=== PATIENT | female | born 1975 | race American Indian/Alaskan Native ===

== ENCOUNTER 2016-09-02 09:24 | Inpatient (IN) | payer OTHER ==
[2016-09-02 10:24] LABS: Basophils % (Auto) 0.4 % (0.0-1.8); Hematocrit 42.3 % (30.3-42.9); Hemoglobin 14.4 gm/dl (10.1-14.3); Mean Corpuscular HGB Conc 34 % (30-34); Mean Corpuscular Hemoglobin 33 pg (28-32); Mean Corpuscular Volume 96 fl (79-97); Platelet Count 288 K/mm3 (140-440); Red Cell Distribution Width 12.6 % (13.2-15.2); White Blood Count 12.1 K/mm3 (4.5-11.0)
[2016-09-02 10:39] LABS: Bilirubin,Urine NEG (Negative); Blood,Urine SM (Negative); Ketones,Urine TR mg/dL (Negative); Leukocyte Esterase,Urine NEG (Negative); Mucus,Urine FEW /HPF; Nitrite,Urine NEG (Negative); Urobilinogen,Urine < 2.0 mg/dL (<2.0)
[2016-09-02 11:37] LABS: Potassium TNR mmol/L (3.6-5.0)
[2016-09-02 11:38] LABS: Anion Gap TNR mmol/L; BUN/Creatinine Ratio TNR; Blood Urea Nitrogen TNR mg/dL (7-17); Carbon Dioxide TNR mmol/L (22-30); Chloride TNR mmol/L (98-107); Glucose TNR mg/dL (65-100); Sodium TNR mmol/L (137-145)
[2016-09-02] MEDS ORDERED: ZOFRAN ONE ×2 (11:38→15:59)
[2016-09-02] MEDS ORDERED: DILAUDID ONE ×2 (11:38→16:12)
[2016-09-02 11:39] LABS: Alanine Aminotransferase TNR units/L (7-56); Albumin TNR g/dL (3.9-5); Albumin/Globulin Ratio TNR %; Alkaline Phosphatase TNR units/L (35-129); Bilirubin,Total TNR mg/dL (0.1-1.2); Calcium TNR mg/dL (8.4-10.2); Total Protein TNR g/dL (6.3-8.2)
[2016-09-02 11:40] LABS: Lipase TNR units/L (13-60)
[2016-09-02] MEDS ORDERED: DILAUDID IV ONE ×2 (11:40→11:55)
[2016-09-02] MEDS ORDERED: NACL 0.9% 1000 ML 1,000 ML IV ONE ×2 (11:40→14:04)
--- NOTE | 2016-09-02 11:41 | Emergency Department Report ---
ED General Adult HPI - General Chief complaint: Abdominal Pain Stated complaint: ABD PX Time Seen by Provider: 09/02/16 11:37 Source: patient, EMS (ems notes not available at time of chart dictation) Mode of arrival: Stretcher Limitations: No Limitations - History of Present Illness Initial comments: This is a 41-year-old female. She is previously unknown to me. Reports a past medical history of anemia She presents to the ER with inability to urinate, and diffuse abdominal pain. There is mild nausea and vomiting. Patient reports inability to urinate. Patient denies pelvic discharge or vaginal discharge. The patient reports 2 sexual partners. Symptoms have been going on for the past 2 days. They're constant. The pain radiates all over. It decreases with hydromorphone and rest. -: Gradual Location: abdomen Quality: aching Consistency: constant Improves with: medication, rest Worsens with: movement Associated Symptoms: malaise, nausea/vomiting, weakness - Related Data Previous Rx's Medication Instructions Recorded Last Taken Type Ciprofloxacin HCl [Ciprofloxacin 500 mg PO Q12H #10 tab 09/04/16 Unknown Rx TAB] oxyCODONE /ACETAMINOPHEN [Percocet 1 tab PO Q6HR PRN #15 tablet 09/04/16 Unknown Rx 5/325] Allergies Allergy/AdvReac Type Severity Reaction Status Date / Time No Known Allergies Allergy Unverified 09/02/16 09:40 ED Review of Systems ROS: Stated complaint: ABD PX Other details as noted in HPI Constitutional: denies: fever Eyes: denies: vision change ENT: denies: epistaxis Respiratory: denies: cough Cardiovascular: denies: chest pain Gastrointestinal: abdominal pain Genitourinary: as per HPI Musculoskeletal: back pain Skin: denies: lesions Neurological: weakness Psychiatric: anxiety ED Past Medical Hx - Past Medical History Previous Medical History?: Yes Hx Hypertension: Yes Additional medical history: anemia. fibroids. 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" - Surgical History Past Surgical History?: Yes Additional Surgical History: D&C - Social History Smoking Status: Current Every Day Smoker Substance Use Type: Marijuana - Medications Home Medications: Home Medications Medication Instructions Recorded Confirmed Last Taken Type Ciprofloxacin HCl [Ciprofloxacin 500 mg PO Q12H #10 tab 09/04/16 Unknown Rx TAB] oxyCODONE /ACETAMINOPHEN [Percocet 1 tab PO Q6HR PRN #15 tablet 09/04/16 Unknown Rx 5/325] ED Physical Exam - General Limitations: No Limitations General appearance: alert, in no apparent distress - Head Head exam: Present: atraumatic, normocephalic - Eye Eye exam: Present: normal appearance, EOMI. Absent: nystagmus - ENT ENT exam: Present: normal exam, normal orophraynx, mucous membranes moist, normal external ear exam - Neck Neck exam: Present: normal inspection, full ROM. Absent: tenderness, meningismus - Respiratory Respiratory exam: Present: normal lung sounds bilaterally. Absent: respiratory distress, wheezes, rales, rhonchi, stridor, decreased breath sounds - Cardiovascular Cardiovascular Exam: Present: regular rate, normal rhythm, normal heart sounds. Absent: bradycardia, tachycardia, irregular rhythm, systolic murmur, diastolic murmur, rubs, gallop - GI/Abdominal GI/Abdominal exam: Present: soft, tenderness, normal bowel sounds. Absent: distended, guarding, rebound, rigid, pulsatile mass - External exam: Present: normal external exam Speculum exam: Present: normal speculum exam Bi-manual exam: Present: cervical motion tendernes, adnexal tenderness, uterine tenderness, other (escorted by RN Sia Huynh) - Extremities Exam Extremities exam: Present: normal inspection, full ROM, normal capillary refill. Absent: tenderness, pedal edema, joint swelling, calf tenderness - Back Exam Back exam: Present: normal inspection, full ROM, CVA tenderness (R), CVA tenderness (L). Absent: tenderness - Neurological Exam Neurological exam: Present: alert, oriented X3, normal gait, other (Extraocular movements intact. Tongue midline. No facial droop. Facial sensation intact to light touch in the V1, V2, V3 distribution bilaterally. 5 and 5 strength in 4 extremities.. Sensation is intact to light touch in 4 extremities.). Absent : motor sensory deficit - Psychiatric Psychiatric exam: Present: anxious - Skin Skin exam: Present: warm, dry, intact, normal color. Absent: rash ED Course Vital Signs 09/02/16 09/02/16 09/02/16 09:39 09:40 09:41 Temperature 98.1 F Pulse Rate 118 H Respiratory 18 Rate Blood Pressure 143/101 Blood Pressure [Left] O2 Sat by Pulse 100 100 100 Oximetry 09/02/16 09/02/16 09/02/16 09:43 10:11 14:11 Temperature Pulse Rate 113 H 91 H Respiratory 19 18 20 Rate Blood Pressure 143/101 Blood Pressure 160/100 [Left] O2 Sat by Pulse 100 99 99 Oximetry - Reevaluation(s) Reevaluation #1: 09/02/16 13:13 Pyelonephritis, urinary obstruction, acute renal failure, pancreatitis, appendicitis, pelvic inflammatory disease Assessment and plan: 41-year-old female with acute renal insufficiency, diffuse abdominal pain, inability to urinate, CVA tenderness bilaterally, cervical motion tenderness, adnexal tenderness. Has required multiple doses of hydromorphone for pain control. IV fluids ordered, antibiotics ordered. given physical exam findings, patient to be treated empirically for pelvic inflammatory disease as well as pyelonephritis. case d/w Dr Andrews, who accepts patient to his service nephrology consult pending given analgesic requirements, I will dose patient for a single dose of ketamine , 0.3 mg/kg IV X 1 for pain control 09/02/16 13:14 Reevaluation #2: 09/02/16 14:04 case d/w Dr Graves who will follow ED Medical Decision Making - Lab Data Result diagrams: 09/04/16 05:55 09/04/16 05:55 Vital Signs 09/02/16 09/02/16 09/02/16 09:39 09:40 09:41 Temperature 98.1 F Pulse Rate 118 H Respiratory 18 Rate Blood Pressure 143/101 O2 Sat by Pulse 100 100 100 Oximetry 09/02/16 09/02/16 09:43 10:11 Temperature Pulse Rate 113 H Respiratory 19 18 Rate Blood Pressure 143/101 O2 Sat by Pulse 100 99 Oximetry Lab Results 09/02/16 09/02/16 09/02/16 Range/Units 10:11 11:40 Unknown WBC 12.1 H (4.5-11.0) K/mm3 RBC 4.40 (3.65-5.03) M/mm3 Hgb 14.4 H (10.1-14.3) gm/dl Hct 42.3 (30.3-42.9) % MCV 96 (79-97) fl MCH 33 H (28-32) pg MCHC 34 (30-34) % RDW 12.6 L (13.2-15.2) % Plt Count 288 (140-440) K/mm3 Lymph % (Auto) 9.9 L (13.4-35.0) % [place] % (Auto) 4.1 (0.0-7.3) % Eos % (Auto) 0.0 (0.0-4.3) % Baso % (Auto) 0.4 (0.0-1.8) % Lymph # 1.2 (1.2-5.4) K/mm3 [place] # 0.5 (0.0-0.8) K/mm3 Eos # 0.0 (0.0-0.4) K/mm3 Baso # 0.0 (0.0-0.1) K/mm3 Seg Neutrophils % 85.6 H (40.0-70.0) % Seg Neutrophils # 10.3 H (1.8-7.7) K/mm3 Sodium 136 L (137-145) mmol/L Potassium 3.6 (3.6-5.0) mmol/L Chloride 93.3 L (98-107) mmol/L Carbon Dioxide 19 L (22-30) mmol/L Anion Gap 27 mmol/L BUN 39 H (7-17) mg/dL Creatinine 2.9 H (0.7-1.2) mg/dL Estimated GFR 22 ml/min BUN/Creatinine Ratio 13.44 % Glucose 135 H (65-100) mg/dL Calcium 10.3 H (8.4-10.2) mg/dL Total Bilirubin 0.8 (0.1-1.2) mg/dL AST 20 (5-40) units/L ALT 14 (7-56) units/L Alkaline Phosphatase 100 (35-129) units/L Total Protein 10.3 H (6.3-8.2) g/dL Albumin 5.4 H (3.9-5) g/dL Albumin/Globulin Ratio 1.1 % Lipase HCG, Qual (Negative) Urine Color Crist[place] (Yellow) Urine Turbidity Cloudy (Clear) Urine pH 5.0 (5.0-7.0) Ur Specific [place] 1.024 (1.003-1.030) Urine Protein 100 mg/dl (Negative) mg/dL Urine Glucose (UA) 50 (Negative) mg/dL Urine Ketones Tr (Negative) mg/dL Urine Blood Sm (Negative) Urine Nitrite Neg (Negative) Urine Bilirubin Neg (Negative) Urine Urobilinogen < 2.0 (<2.0) mg/dL Ur Leukocyte Esterase Neg (Negative) Urine WBC (Auto) 29.0 H (0.0-6.0) /HPF Urine RBC (Auto) 3.0 (0.0-6.0) /HPF U Epithel Cells (Auto) 6.0 (0-13.0) /HPF Urine WBC Clumps 2+ /HPF Hyaline Casts 16 /LPF Urine Mucus Few /HPF 09/02/16 09/02/16 Range/Units Unknown Unknown WBC (4.5-11.0) K/mm3 RBC (3.65-5.03) M/mm3 Hgb (10.1-14.3) gm/dl Hct (30.3-42.9) % MCV (79-97) fl MCH (28-32) pg MCHC (30-34) % RDW (13.2-15.2) % Plt Count (140-440) K/mm3 Lymph % (Auto) (13.4-35.0) % [place] % (Auto) (0.0-7.3) % Eos % (Auto) (0.0-4.3) % Baso % (Auto) (0.0-1.8) % Lymph # (1.2-5.4) K/mm3 [place] # (0.0-0.8) K/mm3 Eos # (0.0-0.4) K/mm3 Baso # (0.0-0.1) K/mm3 Seg Neutrophils % (40.0-70.0) % Seg Neutrophils # (1.8-7.7) K/mm3 Sodium TNR (137-145) mmol/L Potassium TNR (3.6-5.0) mmol/L Chloride TNR (98-107) mmol/L Carbon Dioxide TNR (22-30) mmol/L Anion Gap TNR mmol/L BUN TNR (7-17) mg/dL Creatinine TNR (0.7-1.2) mg/dL Estimated GFR TNR ml/min BUN/Creatinine Ratio TNR % Glucose TNR (65-100) mg/dL Calcium TNR (8.4-10.2) mg/dL Total Bilirubin TNR (0.1-1.2) mg/dL AST TNR (5-40) units/L ALT TNR (7-56) units/L Alkaline Phosphatase TNR (35-129) units/L Total Protein TNR (6.3-8.2) g/dL Albumin TNR (3.9-5) g/dL Albumin/Globulin Ratio TNR % Lipase TNR HCG, Qual Negative (Negative) Urine Color (Yellow) Urine Turbidity (Clear) Urine pH (5.0-7.0) Ur Specific [place] (1.003-1.030) Urine Protein (Negative) mg/dL Urine Glucose (UA) (Negative) mg/dL Urine Ketones (Negative) mg/dL Urine Blood (Negative) Urine Nitrite (Negative) Urine Bilirubin (Negative) Urine Urobilinogen (<2.0) mg/dL Ur Leukocyte Esterase (Negative) Urine WBC (Auto) (0.0-6.0) /HPF Urine RBC (Auto) (0.0-6.0) /HPF U Epithel Cells (Auto) (0-13.0) /HPF Urine WBC Clumps /HPF Hyaline Casts /LPF Urine Mucus /HPF - Radiology Data Radiology results: report reviewed, image reviewed Noncontrast CT scan of the abdomen and pelvis shows no acute disease. Critical care attestation.: If time is entered above; I have spent that time in minutes in the direct care of this critically ill patient, excluding procedure time. ED Disposition Clinical Impression: Acute renal failure, Pyelonephritis Disposition: OP ADMITTED IP TO THIS HOSP Is pt being admited?: Yes Does the pt Need Aspirin: No Condition: Good
[2016-09-02] MEDS ORDERED: ZOFRAN IV ONE (11:56)
[2016-09-02 12:14] LABS: Albumin 5.4 g/dL (3.9-5); Albumin/Globulin Ratio 1.1 %; BUN/Creatinine Ratio 13.44; Bilirubin,Total 0.8 mg/dL (0.1-1.2); Calcium 10.3 mg/dL (8.4-10.2); Chloride 93.3 mmol/L (98-107); Potassium 3.6 mmol/L (3.6-5.0); Total Protein 10.3 g/dL (6.3-8.2)
[2016-09-02] MEDS ORDERED: ROCEPHIN/NS 1 GM/50 ML 1 GM/50 ML BAG IV ONE (13:08)
[2016-09-02] MEDS ORDERED: VIBRAMYCIN PO ONE (13:08)
[2016-09-02] MEDS ORDERED: KETALAR IV ONE ×2 (13:13→13:19)
--- NOTE | 2016-09-02 13:13 | Cat Scan Report ---
CT ABDOMEN AND PELVIS WITHOUT CONTRAST: 09/02/16 CLINICAL:Abdominal pain. TECHNIQUE: Volumetric acquisition and 1.25 millimeter scan reconstructions from the lung bases through the iliac crest. The study was performed without oral contrast. FINDINGS: Abdomen: Normal liver, bile ducts and gallbladder. Normal stomach, duodenum, pancreas and spleen. There is a paucity of intra-abdominal fat. The adrenal glands and kidneys are normal. The renal collecting systems and ureters are nondilated. No ascites and no pneumoperitoneum. The small bowel and colon are normal. An appendix is not identified. Mild calcification of the abdominal aorta. Pelvis: Normal urinary bladder and uterus.A 2 cm hypodensity lateral to the uterus on the left side is likely an ovarian cyst. Normal rectum and sigmoid colon. No pelvic fluid or mass. IMPRESSION: 1. Normal abdomen. 2. Normal pelvis with a 2 cm dominant follicle of the left ovary.
[2016-09-02] MEDS ORDERED: NACL 0.9% 1000 ML 1,000 ML ONE (14:04)
--- NOTE | 2016-09-02 14:40 | Admit Criteria Form ---
Admission Criteria Documentation: PYELONEPHRITIS, ACUTE Clinical Indications for Admission to Inpatient Care (Place 'X' for any and all applicable criteria): Admission is indicated for ANY ONE of the following 1,2,3,4,5 [ ]I. Outpatient treatment has failed or is not feasible (eg, multidrug- resistant organism).5 [ ]II. beyond 24 weeks' gestation6 [ ]III. Hemodynamic instability [ ]IV. Immunocompromised state (eg, AIDS, diabetes, sickle cell disease) [ ]V. Known renal or urologic abnormalities (eg, indwelling catheter, structural abnormalities, renal calculi, urinary stent, previous urologic surgery) [ ]. Condition that requires drainage procedure, including ANY ONE of the following: [ ]a) Urinary obstruction [ ]b) Pyelitis [ ]c) Pyonephrosis [ ]d) Renal or perinephric abscess [ ]e) Emphysematous pyelonephritis 7 [X ]VII. Inpatient admission required rather than observation care (Also use Pyelonephritis, Acute: Observation Care Criteria as appropriate) because of ANY ONE of the following: [ ]a) High fever or infection requiring inpatient admission as indicated by ANY ONE of [id number] [ ]A. Documented bacteremia [ ]B. Temp>104.9 [id number] (oral) [ ]C. Temp>103.10F (oral) or <96.80F (rectal) that does not respond to all emergency treatment [X ]b) Acute renal failure [ ]c) Other significant finding or clinical condition judged not to be within the scope of observation care [ ]d) IV fluid to replace significant ongoing (eg, for over 24hrs) losses (> 3 L/m2 per day) [ ]e) Other condition,treatment or monitoring requiring inpatient admission The original [employer] [facility] content created by [employer] has been revised. The portions of the content which have been revised are identified through the use of italic text or in bold, and [employer] has neither reviewed nor approved the modified material. All other unmodified content is copyright [employer]. Please see references footnoted in the original [employer] edition 2016 Admission Criteria Met: Yes
[2016-09-02] MEDS: ZOFRAN IV PRN (16:08)
[2016-09-02] MEDS: DILAUDID IV PRN ×2 (16:18→20:27)
[2016-09-02 18:11] LABS: Urine Drugs of Abuse Note Disclamer
--- NOTE | 2016-09-02 18:41 | History and Physical Report ---
History of Present Illness Date of examination: 09/02/16 Date of admission: 09/02/16 13:19 Chief complaint: Chief complaint: Difficulty urinating one-day Diffuse abdominal pain 2 days. History of present illness: History of present illness: 41-year-old female presents to the ER with difficulty passing urine. Denies any pelvic discharge or vaginal discharge. Patient has some flank pain. The symptoms have been going on for the last 2 days. Pain confined to the flank region. Pain is about 6 on a scale of 1-10. No exacerbating or relieving factors. No fever no chills. No recent travel. No increasing shortness of breath or cough or chest pain. Past History Past Medical History: hypertension, other (fibroids.) Past Surgical History: Other (D&C) Social history: lives with family, smoking (former smoker), alcohol abuse ( alcohol occasionally), other (marijuana use occasionally) Family history: hypertension Medications and Allergies Allergies Allergy/AdvReac Type Severity Reaction Status Date / Time No Known Allergies Allergy Unverified 09/02/16 09:40 Home Medications Medication Instructions Recorded Confirmed Last Taken Type No Known Home Medications [No 09/02/16 09/02/16 Unknown History Reported Home Medications] Active Meds: Active Medications Hydromorphone HCl (Dilaudid) 0.5 mg IV Q3H PRN PRN Reason: Pain , Severe (7-10) Last Admin: 09/02/16 16:18 Dose: 0.5 mg Ondansetron HCl (Zofran) 4 mg IV Q4H PRN PRN Reason: Nausea And Vomiting Last Admin: 09/02/16 16:08 Dose: 4 mg Review of Systems All systems: negative (neck no neck stiffness. Cardiovascular no chest pain no palpitations no shortness of breath no syncope. Rest of her system no shortness of breath no wheezing. GI no nausea no vomiting no diarrhea. Genitourinary system no dysuria no flank pain. Flank pain present. No dysuria. But has difficulty urinating. BARKEEPER no syncope no seizures. Skin no rashes. Hematologic and lymphatic system no swelling no bruising. No lymphedema.) Exam - Physical Exam Narrative exam: Well-developed well-nourished female lying in bed in slight distress secondary to pain - Constitutional Vitals: Temp Pulse Resp BP Pulse Ox 98.1 F 76 16 134/90 100 09/02/16 17:54 09/02/16 17:54 09/02/16 17:54 09/02/16 17:54 09/02/16 17:54 General appearance: Present: no acute distress, well-nourished - EENT Eyes: Present: PERRL ENT: hearing intact, clear oral mucosa - Neck Neck: Present: supple, normal ROM - Respiratory Respiratory effort: normal Respiratory: bilateral: CTA - Cardiovascular Heart rate: 80 Rhythm: regular Heart Sounds: Present: S1 & S2. Absent: rub, click - Extremities Extremities: pulses symmetrical, No edema Peripheral Pulses: within normal limits - Abdominal General gastrointestinal: Present: soft, non-tender, tender (abdomentender especially flank regions), non-distended, normal bowel sounds Female genitourinary: Present: normal - Integumentary Integumentary: Present: clear, warm, dry - Musculoskeletal Musculoskeletal: gait normal, strength equal bilaterally - Psychiatric Psychiatric: appropriate mood/affect, intact judgment & insight - Neurologic Neurologic: CNII-XII intact, moves all extremities - Allied Health Allied health notes reviewed: nursing Results - Labs CBC & Chem 7: 09/02/16 Unknown 09/02/16 Unknown Labs: Laboratory Last Values WBC 12.1 K/mm3 (4.5-11.0) H 09/02/16 Unknown RBC 4.40 M/mm3 (3.65-5.03) 09/02/16 Unknown Hgb 14.4 gm/dl (10.1-14.3) H 09/02/16 Unknown Hct 42.3 % (30.3-42.9) 09/02/16 Unknown MCV 96 fl (79-97) 09/02/16 Unknown MCH 33 pg (28-32) H 09/02/16 Unknown MCHC 34 % (30-34) 09/02/16 Unknown RDW 12.6 % (13.2-15.2) L 09/02/16 Unknown Plt Count 288 K/mm3 (140-440) 09/02/16 Unknown Lymph % (Auto) 9.9 % (13.4-35.0) L 09/02/16 Unknown [place] % (Auto) 4.1 % (0.0-7.3) 09/02/16 Unknown Eos % (Auto) 0.0 % (0.0-4.3) 09/02/16 Unknown Baso % (Auto) 0.4 % (0.0-1.8) 09/02/16 Unknown Lymph # 1.2 K/mm3 (1.2-5.4) 09/02/16 Unknown [place] # 0.5 K/mm3 (0.0-0.8) 09/02/16 Unknown Eos # 0.0 K/mm3 (0.0-0.4) 09/02/16 Unknown Baso # 0.0 K/mm3 (0.0-0.1) 09/02/16 Unknown Seg Neutrophils % 85.6 % (40.0-70.0) H 09/02/16 Unknown Seg Neutrophils # 10.3 K/mm3 (1.8-7.7) H 09/02/16 Unknown Sodium TNR 09/02/16 Unknown Potassium TNR 09/02/16 Unknown Chloride TNR 09/02/16 Unknown Carbon Dioxide TNR 09/02/16 Unknown Anion Gap TNR 09/02/16 Unknown BUN TNR 09/02/16 Unknown Creatinine TNR 09/02/16 Unknown Estimated GFR TNR 09/02/16 Unknown BUN/Creatinine Ratio TNR 09/02/16 Unknown Glucose TNR 09/02/16 Unknown Calcium TNR 09/02/16 Unknown Total Bilirubin TNR 09/02/16 Unknown AST TNR 09/02/16 Unknown ALT TNR 09/02/16 Unknown Alkaline Phosphatase TNR 09/02/16 Unknown Total Protein TNR 09/02/16 Unknown Albumin TNR 09/02/16 Unknown Albumin/Globulin Ratio TNR 09/02/16 Unknown Lipase TNR 09/02/16 Unknown HCG, Qual Negative (Negative) 09/02/16 Unknown Urine Color Cristy (Yellow) 09/02/16 10:11 Urine Turbidity Cloudy (Clear) 09/02/16 10:11 Urine pH 5.0 (5.0-7.0) 09/02/16 10:11 Ur Specific [place] 1.024 (1.003-1.030) 09/02/16 10:11 Urine Protein 100 mg/dl mg/dL (Negative) 09/02/16 10:11 Urine Glucose (UA) 50 mg/dL (Negative) 09/02/16 10:11 Urine Ketones Tr mg/dL (Negative) 09/02/16 10:11 Urine Blood Sm (Negative) 09/02/16 10:11 Urine Nitrite Neg (Negative) 09/02/16 10:11 Urine Bilirubin Neg (Negative) 09/02/16 10:11 Urine Urobilinogen < 2.0 mg/dL (<2.0) 09/02/16 10:11 Ur Leukocyte Esterase Neg (Negative) 09/02/16 10:11 Urine WBC (Auto) 29.0 /HPF (0.0-6.0) H 09/02/16 10:11 Urine RBC (Auto) 3.0 /HPF (0.0-6.0) 09/02/16 10:11 U Epithel Cells (Auto) 6.0 /HPF (0-13.0) 09/02/16 10:11 Urine WBC Clumps 2+ /HPF 09/02/16 10:11 Hyaline Casts 16 /LPF 09/02/16 10:11 Urine Mucus Few /HPF 09/02/16 10:11 Urine Opiates Screen Presumptive negative 09/02/16 10:28 Urine Methadone Screen Presumptive negative 09/02/16 10:28 Ur Barbiturates Screen Presumptive negative 09/02/16 10:28 Ur Phencyclidine Scrn Presumptive negative 09/02/16 10:28 Ur Amphetamines Screen Presumptive negative 09/02/16 10:28 U Benzodiazepines Scrn Presumptive negative 09/02/16 10:28 Urine Cocaine Screen Presumptive negative 09/02/16 10:28 Short CBC 09/02/16 Range/Units Unknown WBC 12.1 H (4.5-11.0) K/mm3 Hgb 14.4 H (10.1-14.3) gm/dl Hct 42.3 (30.3-42.9) % Plt Count 288 (140-440) K/mm3 BMP 09/02/16 09/02/16 11:40 Unknown Sodium 136 L TNR Potassium 3.6 TNR Chloride 93.3 L TNR Carbon Dioxide 19 L TNR BUN 39 H TNR Creatinine 2.9 H TNR Glucose 135 H TNR Calcium 10.3 H TNR Liver Function 09/02/16 09/02/16 Range/Units 11:40 Unknown Total Bilirubin 0.8 TNR (0.1-1.2) mg/dL AST 20 TNR (5-40) units/L ALT 14 TNR (7-56) units/L Alkaline Phosphatase 100 TNR (35-129) units/L Albumin 5.4 H TNR (3.9-5) g/dL Urine 09/02/ Range/Units 10:11 Urine Color Cristy (Yellow) Urine pH 5.0 (5.0-7.0) Ur Specific [place] 1.024 (1.003-1.030) Urine Protein 100 mg/dl (Negative) mg/dL Urine Glucose (UA) 50 (Negative) mg/dL - Imaging and Cardiology US - abdomen: report reviewed ( hold) Assessment and Plan Assessment and plan: 1. Acute pyelonephritis: Urine white blood cells 29 and patient has flank pain. Patient to be started on Rocephin 1 g IV piggyback every 24 pending urine cultures. 2. Acute renal failure: BUN/creatinine is 39 and 2.9. IV fluids for now and monitor BUN/creatinine. 3. Hypertension: Patient to be started on antihypertensives. If blood pressure is high 4. DVT prophylaxis Lovenox 40 mg subcutaneous started. Advance Directives: Yes (full code) VTE prophylaxis?: Chemical (Lovenox 40 mg subcutaneous started)
[2016-09-02] MEDS ORDERED: FLUARIX QUAD 2016-2017(36 MOS+) IM ONE (18:52)
[2016-09-02] MEDS: D5/0.45NS 1,000 ML IV SCH (20:30)
[2016-09-02 21:53] LABS: Bilirubin,Urine NEG (Negative); Blood,Urine LG (Negative); Ketones,Urine NEG (Negative); Leukocyte Esterase,Urine SM (Negative); Nitrite,Urine NEG (Negative); RBC,Urine > 182.0 /HPF (0.0-6.0); Urobilinogen,Urine < 2.0 mg/dL (<2.0)
[2016-09-03] MEDS: DILAUDID IV PRN ×6 (00:31→20:51)
[2016-09-03] MEDS: ZOFRAN IV PRN ×4 (06:06→20:51)
[2016-09-03] MEDS: D5/0.45NS 1,000 ML IV SCH (06:48)
--- NOTE | 2016-09-03 07:42 | Ultrasound Report ---
ULTRASOUND RENAL BILATERAL HISTORY: Elevated creatinine. TECHNIQUE: transabdominal ultrasound with color Doppler interrogation. FINDINGS: The right kidney measures 9.9 x 4.3 x 5.1cm. Right renal cortex: 1.2cm. The left kidney measures 10.6 x 5.5 x 5.4cm. Left renal cortex: 1.4cm. Scans of the kidneys show normal renal contours. There is normal central calyceal clustering and good preservation of the cortical thickness. There is no evidence of mass or hydronephrosis. The views of the bladder and the region of the ureters appear normal. IMPRESSION: Unremarkable renal ultrasound.
[2016-09-03 09:16] LABS: Basophils % (Auto) 0.2 % (0.0-1.8); Hematocrit 33.2 % (30.3-42.9); Hemoglobin 11.2 gm/dl (10.1-14.3); Mean Corpuscular HGB Conc 34 % (30-34); Mean Corpuscular Hemoglobin 33 pg (28-32); Mean Corpuscular Volume 97 fl (79-97); Platelet Count 205 K/mm3 (140-440); Red Blood Count 3.42 M/mm3 (3.65-5.03); Red Cell Distribution Width 12.7 % (13.2-15.2); White Blood Count 11.8 K/mm3 (4.5-11.0)
[2016-09-03 09:23] LABS: Anion Gap 17 mmol/L; BUN/Creatinine Ratio 26.25; Blood Urea Nitrogen 21 mg/dL (7-17); Calcium 9.1 mg/dL (8.4-10.2); Carbon Dioxide 22 mmol/L (22-30); Chloride 103.2 mmol/L (98-107); Glucose 103 mg/dL (65-100); Potassium 3.6 mmol/L (3.6-5.0); Sodium 139 mmol/L (137-145)
--- NOTE | 2016-09-03 10:29 | Consultation ---
History of Present Illness - Reason for Consult Consult date: 09/03/16 acute renal failure Requesting physician: TARAN GATICA - History of Present Illness 41-year-old lady with a history of uterine fibroids and ovarian cyst presents on account of a one-week history of difficulty passing urine. Patient also complained of left flank pain which she describes a sharp constant pain, rates it as a 6/10, aggravated by getting up and relieved by sitting in hot tub. Patient was taking Advil at least twice a day because of the pain. She also had low back pain for 3-4 days now. Account of the unrelenting symptoms patient came to the hospital. BUN/creatinine elevated at 39/2.9 mg/dL. Patient had not been able to pass urine. A Klein catheter was inserted and she made a lot of urine. On further inquiry, she admits to nausea or vomiting. She has been constipated. Past History Past Medical History: hypertension, other (fibroids. Ovarian cyst) Past Surgical History: Other (D&C) Social history: lives with family, smoking (6 cigarettes a day), alcohol abuse ( alcohol occasionally), other (marijuana use 2 blunts a day, patient is a [employer] at [employer]. She lives with her boyfriend. She has 6 children who do not live with her. The youngest who is 12 lives with her 18-year-old daughter) Family history: cancer (sister had ovarian cancer.), hypertension, other (does not know the cause of of her father. Mother has COPD. Brother is alive and well.) Medications and Allergies Allergies Allergy/AdvReac Type Severity Reaction Status Date / Time No Known Allergies Allergy Unverified 09/02/16 09:40 Home Medications Medication Instructions Recorded Confirmed Last Taken Type Ciprofloxacin HCl [Ciprofloxacin 500 mg PO Q12H #10 tab 09/04/16 Unknown Rx TAB] oxyCODONE /ACETAMINOPHEN [Percocet 1 tab PO Q6HR PRN #15 tablet 09/04/16 Unknown Rx 5/325] Active Meds: Active Medications Hydromorphone HCl (Dilaudid) 1 mg IV Q3H PRN PRN Reason: Pain , Severe (7-10) Last Admin: 09/03/16 09:19 Dose: 1 mg Dextrose/Sodium Chloride (D5/0.45ns) 1,000 mls @ 100 mls/hr IV DIRECT SVITLANA Last Admin: 09/03/16 06:48 Dose: 100 mls/hr Ceftriaxone Sodium (Rocephin/Ns 2 Gm/100 Ml) 2 gm in 100 mls @ 200 mls/hr IV Q24H SVITLANA PRN Reason: Protocol Influenza Virus Vaccine Quadrival (Fluarix Quad [id number](36 Mos+)) 60 mcg IM .ONCE ONE Stop: 09/03/16 12:01 Ondansetron HCl (Zofran) 4 mg IV Q4H PRN PRN Reason: Nausea And Vomiting Last Admin: 09/03/16 06:06 Dose: 4 mg Review of Systems All systems: negative (Constitutional: She admits to fever and chills. Appetite is diminished. No weight loss. HEENT: She admits to sulfa throat and sinus drainage no hearing or vision impairment . Cardiovascular: No chest pain, shortness of breath, palpitations, lower extremity swelling or dizziness. Respiratory: No cough, sputum, admits to shortness of breath, no hemoptysis or wheezing. Gastrointestinal: No nausea, vomiting, diarrhea, abdominal pain, hematemesis or melena. Admits to constipation Genitourinary: No frequency urgency dysuria or hematuria. hematologic: No abnormal bleeding or bruising. Integumentary: no pruritus but admits to a rash in the right heel Neurological : Admits to headache no focal weakness or numbness, no syncope or seizures. Musculoskeletal: No joint pains no stiffness. Psychiatry: no anxiety or depression) Exam - Vital Signs Vital signs: Vital Signs Pulse Ox 100 09/02/16 09:39 - Physical Exam Narrative exam: Young -[place] female lying in bed in no acute distress HEENT normocephalic atraumatic, pupils equal reactive to light, pink, clear oropharynx Neck supple, no thyromegaly no jugular venous distention CVS S1-S2 regular rate rhythm without murmur, rub or gallop Chest clear to auscultation Abdomen soft, distended, tender no organomegaly no bruit bowel sounds present Extremities no edema no cyanosis or clubbing Neuro awake, alert oriented x3 no gross deficit Results - Lab Results 09/04/16 05:55 09/04/16 05:55 Most recent lab results Calcium 9.1 mg/dL (8.4-10.2) 09/03/16 08:41 Urine Creatinine 207.4 mg/dL (0.1-20.0) H 09/02/16 Unknown Urine Total Protein 87 mg/dL (5-11.8) H 09/02/16 Unknown Assessment and Plan - Patient Problems (1) Proteinuria Status: Acute Plan to address problem: Proteinuria/hematuria need to rule out glomerulonephritis if this is persisting. Repeat urinalysis and quantify proteinuria after treating infection (2) Acute renal failure Status: Acute Qualifiers: Acute renal failure type: A Plan to address problem: Acute kidney injury probably secondary to obstructive uropathy and superimposed NSAID induced nephropathy. Urinary retention etiology uncertain. Urinalysis also suggest an infection (3) Pyelonephritis Status: Acute Plan to address problem: Follow-up urine culture. Continue antibiotics. (4) Urinary retention Status: Acute Plan to address problem: Etiology uncertain. Klein catheter has been removed and voiding trial been attempted. If she does not improve, we'll need to consider urology consult.
[2016-09-03] MEDS ORDERED: FLUARIX QUAD 2016-2017(36 MOS+) IM ONE (12:00)
--- NOTE | 2016-09-03 14:56 | Progress Note ---
Assessment and Plan Assessment and plan: 41-year-old female presents to the ER with difficulty passing urine. Denies any pelvic discharge or vaginal discharge. Patient has some flank pain. The symptoms have been going on for the last 2 days. Pain confined to the flank region. Pain is about 6 on a scale of 1-10. No exacerbating or relieving factors. No fever no chills. No recent travel. No increasing shortness of breath or cough * Abdominal Severe abdominal pain * Gastroenteritis * Chest pain-vision without complaint of chest pain * T waves inverted on EKG * Acute kidney injury- Likely secondary to vasomotor nephropathy * Hypertensive urgency * Acute cystitis * Flank Pain * THC abuse Plan: * Check CT abdomen and pelvis with contrast * Renal function has improved * Renal function improved. 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 Reports abdominal pain generalized no alleviating or aggravating factor X over 10 in intensity. Denies any chest pain, nausea, vomiting, diarrhea No fever noted blood pressure controlled No adverse events reported to me by nursing staff Hospitalist Physical - Physical exam Narrative exam: VITAL SIGNS: Reviewed. GENERAL: The patient appeared well nourished and normally developed. Vital signs as documented. HEAD: No signs of head trauma. EYES: Pupils are equal. Extraocular motions intact. EARS: Hearing grossly intact. MOUTH: Oropharynx is normal. NECK: No adenopathy, no JVD. CHEST: Chest with clear breath sounds bilaterally. No wheezes, rales, or rhonchi. CARDIAC: Regular rate and rhythm. S1 and S2, without murmurs, gallops, or rubs. VASCULAR: No Edema. Peripheral pulses normal and equal in all extremities. ABDOMEN: Soft, tenderness. No sign of distention. No rebound or guarding, and no masses palpated. Bowel Sounds normal. MUSCULOSKELETAL: Good range of motion of all major joints. Extremities without clubbing, cyanosis or edema. NEUROLOGIC EXAM: Alert and oriented x 3. No focal sensory or strength deficits. Speech normal. Follows commands. PSYCHIATRIC: Mood normal. SKIN: No rash or lesions. - Constitutional Vitals: Temp Pulse Resp BP Pulse Ox 98 F 72 18 149/96 97 09/03/16 08:00 09/03/16 13:09 09/03/16 13:09 09/03/16 08:00 09/03/16 08:00 General appearance: Present: no acute distress, well-nourished Results - Labs CBC & Chem 7: 09/03/16 08:41 09/03/16 08:41 Labs: Laboratory Last Values WBC 11.8 K/mm3 (4.5-11.0) H 09/03/16 08:41 RBC 3.42 M/mm3 (3.65-5.03) L 09/03/16 08:41 Hgb 11.2 gm/dl (10.1-14.3) D 09/03/16 08:41 Hct 33.2 % (30.3-42.9) D 09/03/16 08:41 MCV 97 fl (79-97) 09/03/16 08:41 MCH 33 pg (28-32) H 09/03/16 08:41 MCHC 34 % (30-34) 09/03/16 08:41 RDW 12.7 % (13.2-15.2) L 09/03/16 08:41 Plt Count 205 K/mm3 (140-440) 09/03/16 08:41 Lymph % (Auto) 13.6 % (13.4-35.0) 09/03/16 08:41 [place] % (Auto) 6.7 % (0.0-7.3) 09/03/16 08:41 Eos % (Auto) 0.0 % (0.0-4.3) 09/03/16 08:41 Baso % (Auto) 0.2 % (0.0-1.8) 09/03/16 08:41 Lymph # 1.6 K/mm3 (1.2-5.4) 09/03/16 08:41 [place] # 0.8 K/mm3 (0.0-0.8) 09/03/16 08:41 Eos # 0.0 K/mm3 (0.0-0.4) 09/03/16 08:41 Baso # 0.0 K/mm3 (0.0-0.1) 09/03/16 08:41 Seg Neutrophils % 79.5 % (40.0-70.0) H 09/03/16 08:41 Seg Neutrophils # 9.4 K/mm3 (1.8-7.7) H 09/03/16 08:41 Sodium 139 mmol/L (137-145) 09/03/16 08:41 Potassium 3.6 mmol/L (3.6-5.0) 09/03/16 08:41 Chloride 103.2 mmol/L (98-107) 09/03/16 08:41 Carbon Dioxide 22 mmol/L (22-30) 09/03/16 08:41 Anion Gap 17 mmol/L 09/03/16 08:41 BUN 21 mg/dL (7-17) H 09/03/16 08:41 Creatinine 0.8 mg/dL (0.7-1.2) D 09/03/16 08:41 Estimated GFR > 60 ml/min 09/03/16 08:41 BUN/Creatinine Ratio 26.25 % 09/03/16 08:41 Glucose 103 mg/dL (65-100) H 09/03/16 08:41 POC Glucose 122 (70-105) H 09/02/16 09:48 Calcium 9.1 mg/dL (8.4-10.2) 09/03/16 08:41 Total Bilirubin TNR 09/02/16 Unknown AST TNR 09/02/16 Unknown ALT TNR 09/02/16 Unknown Alkaline Phosphatase TNR 09/02/16 Unknown Total Protein TNR 09/02/16 Unknown Albumin TNR 09/02/16 Unknown Albumin/Globulin Ratio TNR 09/02/16 Unknown Lipase TNR 09/02/16 Unknown HCG, Qual Negative (Negative) 09/02/16 Unknown Urine Color Cristy (Yellow) 09/02/16 Unknown Urine Turbidity Cloudy (Clear) 09/02/16 Unknown Urine pH 6.0 (5.0-7.0) 09/02/16 Unknown Ur Specific [place] 1.021 (1.003-1.030) 09/02/16 Unknown Urine Protein 100 mg/dl mg/dL (Negative) 09/02/16 Unknown Urine Glucose (UA) Neg mg/dL (Negative) 09/02/16 Unknown Urine Ketones Neg mg/dL (Negative) 09/02/16 Unknown Urine Blood Lg (Negative) 09/02/16 Unknown Urine Nitrite Neg (Negative) 09/02/16 Unknown Urine Bilirubin Neg (Negative) 09/02/16 Unknown Urine Urobilinogen < 2.0 mg/dL (<2.0) 09/02/16 Unknown Ur Leukocyte Esterase Sm (Negative) 09/02/16 Unknown Urine WBC (Auto) 71.0 /HPF (0.0-6.0) H 09/02/16 Unknown Urine RBC (Auto) > 182.0 /HPF (0.0-6.0) 09/02/16 Unknown U Epithel Cells (Auto) 6.0 /HPF (0-13.0) 09/02/16 10:11 Urine WBC Clumps 2+ /HPF 09/02/16 10:11 Hyaline Casts 16 /LPF 09/02/16 10:11 Urine Mucus Few /HPF 09/02/16 10:11 Urine Creatinine 207.4 mg/dL (0.1-20.0) H 09/02/16 Unknown Protein/Creatinin Ratio 0.42 09/02/16 Unknown Urine Total Protein 87 mg/dL (5-11.8) H 09/02/16 Unknown Urine Opiates Screen Presumptive negative 09/02/16 10:28 Urine Methadone Screen Presumptive negative 09/02/16 10:28 Ur Barbiturates Screen Presumptive negative 09/02/16 10:28 Ur Phencyclidine Scrn Presumptive negative 09/02/16 10:28 Ur Amphetamines Screen Presumptive negative 09/02/16 10:28 U Benzodiazepines Scrn Presumptive negative 09/02/16 10:28 Urine Cocaine Screen Presumptive negative 09/02/16 10:28 U Marijuana (THC) Screen Presumptive positive 09/02/16 10:28 Drugs of Abuse Note Disclamer 09/02/16 10:28
[2016-09-03] MEDS ORDERED: CEPHULAC PO ONE (15:11)
[2016-09-03] MEDS: ROCEPHIN/NS 2 GM/100 ML 2 GM/100 ML BAG IV SCH (16:52)
[2016-09-03] MEDS ORDERED: NACL ONE (18:40)
[2016-09-03 19:00] LABS: Creatine Kinase MB 1.3 ng/mL (0.0-4.0)
[2016-09-03 19:01] LABS: Creatine Kinase 138 units/L (30-135)
--- NOTE | 2016-09-03 20:05 | Cat Scan Report ---
FINAL REPORT PROCEDURE: CT ABDOMEN PELVIS W CON TECHNIQUE: Computerized axial tomography of the abdomen and pelvis was performed after the IV injection of iodinated nonionic contrast. HISTORY: abdominal pain COMPARISON: CT exam dated September 02, 2016 FINDINGS: There is likely a hepatomegaly. Spleen appears normal. No gallbladder abnormality is seen but there is mild intra and extrahepatic biliary ductal dilation. Common bile duct is dilated up to 8.5 millimeters in diameter, increased from prior study. A cause for obstruction is not seen by this exam pancreas appears normal. Adrenal glands and abdominal aorta are normal in size. No renal abnormality is seen. Normal appendix is seen. Mild free pelvic fluid is slightly greater than prior study but is low in density. Follicles are seen in the right ovary. The cyst in the left ovary, seen on prior study, has likely ruptured. Mild air in the urinary bladder is likely from prior catheterization. No bladder wall thickening is seen. There is no evidence of bowel obstruction. No constipation is seen. Disc bulges are seen in the mid to lower lumbar spine. IMPRESSION: There has likely been interval rupture of the cyst in the left ovary with mild low-density free fluid in the pelvis. New mild prominence of the common bile duct and proximal intrahepatic biliary ducts is seen without a cause for obstruction. Correlation with bilirubin levels is recommended. MRCP may be useful in followup.
[2016-09-04] MEDS: DILAUDID IV PRN ×5 (01:01→15:34)
[2016-09-04] MEDS: ZOFRAN IV PRN ×4 (01:01→12:45)
[2016-09-04 02:18] LABS: Creatine Kinase MB 1.1 ng/mL (0.0-4.0)
[2016-09-04 02:21] LABS: Creatine Kinase 129 units/L (30-135)
[2016-09-04 06:15] LABS: Hematocrit 29.7 % (30.3-42.9); Hemoglobin 10.2 gm/dl (10.1-14.3); Mean Corpuscular HGB Conc 34 % (30-34); Mean Corpuscular Hemoglobin 33 pg (28-32); Mean Corpuscular Volume 96 fl (79-97); Platelet Count 160 K/mm3 (140-440); Red Blood Count 3.09 M/mm3 (3.65-5.03); Red Cell Distribution Width 12.5 % (13.2-15.2); White Blood Count 7.5 K/mm3 (4.5-11.0)
[2016-09-04 06:35] LABS: Anion Gap 15 mmol/L; Blood Urea Nitrogen 9 mg/dL (7-17); Calcium 8.3 mg/dL (8.4-10.2); Carbon Dioxide 23 mmol/L (22-30); Chloride 101.4 mmol/L (98-107); Glucose 96 mg/dL (65-100); Potassium 3.2 mmol/L (3.6-5.0); Sodium 136 mmol/L (137-145)
--- NOTE | 2016-09-04 08:28 | Progress Note ---
Assessment and Plan - Patient Problems (1) Proteinuria Status: Acute Plan to address problem: Proteinuria/hematuria need to rule out glomerulonephritis if this is persisting. Repeat urinalysis and quantify proteinuria after treating infection (2) Acute renal failure Status: Acute Qualifiers: Acute renal failure type: A Plan to address problem: Acute kidney injury probably secondary to obstructive uropathy and superimposed NSAID induced nephropathy. Renal function is back to normal. Can be followed up as an outpatient (3) Pyelonephritis Status: Acute Plan to address problem: Follow-up urine culture. Continue antibiotics., Change to by mouth antibiotics Subjective Date of service: 09/04/16 Principal diagnosis: acute kidney failure, urinary retention, acute pyelonephritis Interval history: Patient seen lying in bed. Now making urine. No complaints. Feels better Objective - Exam Narrative Exam: Young -[place] female lying in bed in no acute distress HEENT normocephalic atraumatic, pupils equal reactive to light, pink, clear oropharynx Neck supple, no thyromegaly no jugular venous distention CVS S1-S2 regular rate rhythm without murmur, rub or gallop Chest clear to auscultation Abdomen soft, distended, tender no organomegaly no bruit bowel sounds present Extremities no edema no cyanosis or clubbing Neuro awake, alert oriented x3 no gross deficit - Vital Signs Vital signs: Vital Signs - 12hr 09/03/16 09/03/16 09/04/16 20:51 20:55 00:00 Temperature 98.0 F Pulse Rate [ 67 Left Brachial] Pulse Rate [ 74 Left Radial] Respiratory 16 18 Rate Blood Pressure 110/70 130/86 [Left Arm] O2 Sat by Pulse 99 Oximetry - Lab 09/04/16 05:55 09/04/16 05:55 Most recent lab results Calcium 8.3 mg/dL (8.4-10.2) L 09/04/16 05:55 Urine Creatinine 207.4 mg/dL (0.1-20.0) H 09/02/16 Unknown Urine Total Protein 87 mg/dL (5-11.8) H 09/02/16 Unknown
--- NOTE | 2016-09-04 09:25 | Discharge Summary ---
Providers - Providers Date of Admission: 09/02/16 13:19 Attending physician: KELECHI CRANDALL Primary care physician: PAVEL LOZA MD Hospitalization Condition: Good Disposition: STILL A PATIENT Core Measure Documentation - Palliative Care Palliative Care/ Comfort Measures: Not Applicable Exam - Constitutional Vitals: Temp Pulse Resp BP Pulse Ox 97.9 F 63 20 120/67 100 09/04/16 08:00 09/04/16 08:00 09/04/16 08:00 09/04/16 08:00 09/04/16 08:00 Plan Follow up with: PAVEL LOZA MD [Primary Care Provider] - 3-5 Days
[2016-09-04] MEDS: ROCEPHIN/NS 2 GM/100 ML 2 GM/100 ML BAG IV SCH (15:33)
[2016-09-04 16:38] VITALS: BP 121/73
== END 2016-09-04 18:30 | disposition home or self-care (01) | DRG 690 ==
LOC: ED 09:24 → 3A 13:19
PROVIDERS: ADMIT Internal Medicine; ATTEND Internal Medicine
DX: N12 Tubulo-interstitial nephritis, not specified as acute or chronic (principal); F19.10 Other psychoactive substance abuse, uncomplicated; N17.0 Acute kidney failure with tubular necrosis; K52.9 Noninfective gastroenteritis and colitis, unspecified; I16.0 Hypertensive urgency; Z82.49 Family history of ischemic heart disease and other diseases of the circulatory system; Z87.891 Personal history of nicotine dependence; F10.10 Alcohol abuse, uncomplicated; Z23 Encounter for immunization; N30.90 Cystitis, unspecified without hematuria; I10 Essential (primary) hypertension; Z86.2 Personal history of diseases of the blood and blood-forming organs and certain disorders involving the immune mechanism; Z83.6 Family history of other diseases of the respiratory system; Z80.41 Family history of malignant neoplasm of ovary; R80.9 Proteinuria, unspecified
CPT/HCPCS: 36415; 51702; 74176; 74177; 76770; 80048; 80053; 80307; 81001; 82550; 82553; 82570; 82962; 83690; 84156; 84484; 84703; 85025; 85027; 87086; 87210; 87591; 90686; 93005; 93010; 96365; 96375; 96376; 99406; J0696; J1170; J2405; J7030; Q9967